=== PATIENT | female | born 1965 | race Caucasian/White ===

== ENCOUNTER → 2016-03-27 | Outpatient (CLI) | payer OTHER ==
--- NOTE | 2016-03-27 10:27 | MA ---
Diagnostic Digital Mammogram With iCAD Analysis Clinical Indications: Patient reports intermittent palpable areas in the right breast, although, curr ently she does not feel any discrete palpable abnormality. Technique: Standard cephalocaudal projections are obtained. Digital breast tomosynthesis was performe d in the MLO projection with reconstruction at 1.0 mm slice thickness and composite MLO views reconst ructed. This examination is processed by the iCAD computer aided detection system. Comparison: August 2011. Breast density: Type D: Extremely dense. Findings: CAD was reviewed. Focal nodular opacities in the upper and lower posterior breast are uncha nged and were previously demonstrated to represent lymph nodes. No spiculated masses, suspicious calc ifications or secondary signs of malignancy are seen. There has been no significant change in the diamond earance of either breast. Impression: Palpable areas previously present in the right breast require further evaluation, BI-RADS 0. Recommendation: Targeted right breast ultrasound which will be subsequently performed today. [facility] will send a result letter to the patient. Negative mammography should not preclude additional workup of a clinically suspicious finding. The patient's information is entered into a reminder system with a target due date for her next mammo gram.
--- NOTE | 2016-03-27 11:11 | US ---
Right Breast Ultrasound History: Evaluate palpable areas in the outer right breast intermittently identified by the patient o n physical examination. Technique: Longitudinal and transverse images were obtained utilizing a 15 MHz transducer. Color Dop pler evaluation is employed for assessment of vascularity. The examination is interpreted in conjunction with diagnostic mammography performed earlier today. Findings: Two small well-circumscribed nodular opacities are noted in the outer right breast one at t he 11:00 position and second at the 8:00 position. These have not changed significantly in size from the 2012 study and have an appearance compatible with small benign lymph nodes. No suspicious solid m ass is seen and no cyst is identified. Impression: Benign findings when considering mammographic and sonographic assessment, BI-RADS 2. Recommendation: Resume routine mammographic screening in one year as long as physical examination is negative. A verbal report was given to the patient. [facility] will send a result letter to the patient.
== END ==
LOC: FIMAGING 09:42
PROVIDERS: ATTEND Family Medicine
DX: N63 Unspecified lump in breast (principal)
CPT/HCPCS: G0204; G0279

== ENCOUNTER 2017-08-23 19:41 | Emergency (ER) | payer OTHER ==
[2017-08-23 20:17] LABS: PLATELET COUNT 257 10^3/uL (150-400)
--- NOTE | 2017-08-23 20:17 | EDPHY ---
H & P Stated Complaint: Hives/rash all over, benadryl x1day, poss from pencillins/milk - Personal History LMP (Females 10-55): Hysterectomy Current Tetanus Diphtheria and Acellular Pertussis (TDAP): Unsure - Medical/Surgical History Hx Asthma: No Hx Chronic Respiratory Disease: No Hx Diabetes: No Hx Cardiac Disease: No Hx Renal Disease: No Hx Cirrhosis: No Hx Alcoholism: No Hx HIV/AIDS: No Hx Splenectomy or Spleen Trauma: No Other PMH: Sensitive to penicillins, hysterectomy - Social History Smoking Status: Never smoked Time Seen by Provider: 08/23/17 19:52 HPI/ROS: CHIEF COMPLAINT: Itching rash x3 days HISTORY OF PRESENT ILLNESS: 51-year-old female generally healthy presents to the ER via private vehicle complaining 3 days of itching rash, skin described as "hot". No pain. No intraoral lesions. No nausea or vomiting. No epistaxis. No gingival bleeding. No urinary abnormality. No hematuria. No ocular complaints. No GI complaints. No medication changes. No recent URI or pharyngitis symptoms. No chest pain. No dyspnea. No abdominal pain. No melena or hematochezia. No headache. PRIMARY CARE PROVIDER: Dr. Doris Chong REVIEW OF SYSTEMS: A ten point review of systems was performed and is negative with the exception of the items mentioned in the HPI PAST MEDICAL & SURGICAL HISTORY: Partial hysterectomy. 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 No IV drug use history. PHYSICAL EXAM (Prior to examination, patient consented to physical exam, hands were washed and my usual and customary physical exam procedures followed) 1) GENERAL: Well-developed, well-nourished, alert and oriented. Appears nontoxic 2) HEAD: Normocephalic, atraumatic. No tenderness to palpation temporal region. 3) HEENT: Pupils equal, round, reactive to light bilaterally. Sclera anicteric. No injection Nasopharynx, oropharynx, clear, no lesions.No intraoral lesions . No tonsillar enlargement or exudate. No crusting. No epistaxis. Ears bilaterally with normal tympanic membranes. 4) NECK: Full range of motion, no meningeal signs. 5) LUNGS: Clear auscultation bilaterally, no wheezes, no rhonchi, no retractions. 6) HEART: Regular rate and rhythm, no murmur, no heave, no gallop. 7) ABDOMEN: No guarding, no rebound, no focal tenderness, negative McBurney's, negative Lei's, negative Rovsing's, negative peritoneal sign, 8) MUSCULOSKELETAL: Moving all extremities, no focal areas of tenderness, no obvious trauma. No peripheral edema or discoloration. 9) BACK: No CVA tenderness, no midline vertebral tenderness, no fluctuance, no step-off, no obvious trauma, no visual or palpable abnormality. 10) SKIN: Diffuse blanchable vasculitic appearing rash. No evidence of super infection or cellulitis. No vesicles. No tenderness. Spares the genitalia . No sloughing of tissue. No bullae 11) (with female neurodiagnostic technician Lisa at bedside): No rash or lesions. No sloughing of tissue DIFFERENTIAL DIAGNOSIS: In no particular include but limited to cellulitis, urticaria, vasculitis, Causey-Campos, post streptococcal glomerular nephritis (Cecille Sarabia) Constitutional: Initial Vital Signs Temperature (C) 36.6 C 08/23/17 19:42 Heart Rate 75 08/23/17 19:42 Respiratory Rate 19 08/23/17 19:42 Blood Pressure 119/88 H 08/23/17 19:42 O2 Sat (%) 98 08/23/17 19:42 O2 Delivery Mode Room Air Allergies/Adverse Reactions: cephalexin monohydrate [From Keflex] Allergy (Verified 08/23/17 19:42) Anaphylaxis Penicillins Allergy (Verified 08/23/17 19:42) Anaphylaxis Home Medications: Medication Instructions Recorded predniSONE [Prednisone] 20 mg PO DAILY #15 tablet 08/23/17 Medical Decision Making ED Course/Re-evaluation: Patient was re-evaluated with serial examinations in the case discussed with secondary supervising physician Dr. Yvonne Pineda in the ER. Large vessel vasculitis not ruled out although I think less than likely at this time. No evidence of end-organ damage at this time. We discussed multiple possible etiologies for symptoms. Doubt infectious etiology such as cellulitis. No evidence of super infection. Recommended course of prednisone and close follow up with her primary care provider. Doubt Causey-Campos. She feels comfortable being discharged. Usual and customary discharge precautions and instructions provided. (Cecille Sarabia) Other Provider: The patient was evaluated and managed by the Physician Surgical Pathologist. I discussed the patient's presentation and course with the physician loan assistant and agree with the evaluation. My co-signature indicates that I have reviewed this chart and I agree with the findings and plan of care as documented. I am the secondary supervising physician. (Yvonne Pineda) - Data Points Laboratory Results: Laboratory Results 08/23/17 20:00 08/23/17 20:00 Medications Given: Discontinued Medications Prednisone (Prednisone) 60 mg PO EDNOW ONE Stop: 08/23/17 21:35 Last Admin: 08/23/17 21:35 Dose: 60 mg Departure - Departure Disposition: Home, Routine, Self-Care Clinical Impression: Vasculitis Condition: Good Instructions: Acute Rash (ED) Additional Instructions: Return to the ER if you develop new or worsening symptoms, fevers, blistering, or any other symptoms that concern Referrals: Doris Chong MD [Primary Care Provider] - 2-3 days, call for appt. Prescriptions: predniSONE [Prednisone] 20 mg PO DAILY #15 tablet
[2017-08-23] MEDS ORDERED: predniSONE 20 MG TAB ONE (21:33)
[2017-08-23] MEDS ORDERED: predniSONE 20 MG TAB PO ONE (21:34)
[2017-08-23 21:38] VITALS: BP 113/68
== END 2017-08-23 21:38 | disposition home or self-care (01) ==
DX: I77.6 Arteritis, unspecified (principal)
CPT/HCPCS: J7512

== ENCOUNTER 2017-08-25 07:52 | Emergency (ER) | payer OTHER ==
--- NOTE | 2017-08-25 08:09 | EDPHY ---
H & P Stated Complaint: Worsening allergy symptoms since Friday Time Seen by Provider: 08/25/17 08:10 HPI/ROS: CHIEF COMPLAINT: Worsening rash HISTORY OF PRESENT ILLNESS: The patient is a 51 y/o female returning for the second time in 2 days complaining of a worsening diffuse rash that began 5 days ago. She says, "this is how I reacted when I used to take Penicillin or Keflex. 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 She cannot identify any other obvious contacts or precipitating sources for her rash. She received a script for prednisone Friday and has been using this as prescribed along with 50mg Benadryl every 6 hours to treat symptoms. Her rash seemed to improve during the day yesterday, but worsened last night. She now feels like her ears and tongue are itching and her "throat's getting raspy." She denies dyspnea, dysphagia, fever, vomiting, abdominal pain, diarrhea. She is normally healthy. REVIEW OF SYSTEMS: A ten point review of systems was performed and is negative with the exception of the items mentioned in the HPI. 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 Lives in [place]. She is . Prior medical records reviewed including ED visit 08/23/17 for rash. General Appearance: Alert. Vital signs reviewed. Blood pressure 118/81. Eyes: Pupils equal and round, no conjunctival injection, no discharge. Anicteric. ENT, Mouth: Mucous membranes are moist, no oropharyngeal erythema or edema. Speaking normally, swallowing easily. Neck: No lymphadenopathy, supple. Trachea midline. Respiratory: Lungs are clear to auscultation; no wheezes, rales, or rhonchi. Cardiovascular: Regular rate and rhythm; no murmur, rub, or gallop. Gastrointestinal: Abdomen is soft and nontender, no masses or organomegaly. Skin: Warm and dry, diffuse erythematous urticarial rash with excoriations, normal color. Back: Nontender to palpation over the thoracolumbar spine. Extremities: No lower extremity edema, no calf tenderness or swelling. Neurological: Alert and oriented. Moving all four extremities easily and equally. Psychiatric: Normal affect. - Personal History LMP (Females 10-55): Hysterectomy Current Tetanus Diphtheria and Acellular Pertussis (TDAP): No - Medical/Surgical History Hx Asthma: No Hx Chronic Respiratory Disease: No Hx Diabetes: No Hx Cardiac Disease: No Hx Renal Disease: No Hx Cirrhosis: No Hx Alcoholism: No Hx HIV/AIDS: No Hx Splenectomy or Spleen Trauma: No Other PMH: Sensitive to penicillins, hysterectomy - Social History Smoking Status: Never smoked Constitutional: Initial Vital Signs Temperature (C) 36.8 C 08/25/17 07:53 Heart Rate 71 08/25/17 07:53 Respiratory Rate 16 08/25/17 07:53 Blood Pressure 118/81 H 08/25/17 07:53 O2 Sat (%) 100 08/25/17 07:53 O2 Delivery Mode Room Air Allergies/Adverse Reactions: cephalexin monohydrate [From Keflex] Allergy (Verified 08/23/17 19:42) Anaphylaxis Penicillins Allergy (Verified 08/23/17 19:42) Anaphylaxis Home Medications: Medication Instructions Recorded predniSONE [Prednisone] 20 mg PO DAILY #15 tablet 08/23/17 Medical Decision Making ED Course/Re-evaluation: This is a 51 y/o female who presents with a 5-day history of worsening diffuse pruritic and erythematous rash that improved only briefly yesterday after starting prednisone and worsened again last night. She reports her symptoms are consistent with prior antibiotic reaction, but she has not used antibiotics recently. 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 She has diffuse urticaria, both otherwise normal exam. No wheezes, stridor, angioedema. Plan for standard allergic rash treatment including 25mg IV Benadryl, 50mg IV Ranitidine, and 60mg PO Prednisone. Patient is feeling nauseated after PO prednisone. 4mg IV Zofran ordered. Reassessed patient. There is no evidence of respiratory compromise. She is feeling improved and ready to be discharged home. I've recommended continuing her Prednisone and Benadryl dosing and add Sarna lotion and Tagamet as desired for symptom management. She's been referred to [facility] for follow up. Return precautions discussed. Differential Diagnosis: I considered a differential diagnosis that includes but is not limited to anaphylaxis, urticaria, allergic reaction, drug reaction, dermatitis. - Data Points Medications Given: Discontinued Medications Diphenhydramine HCl (Benadryl Injection) 25 mg IVP EDNOW ONE Stop: 08/25/17 08:30 Last Admin: 08/25/17 08:36 Dose: 25 mg Ondansetron HCl (Zofran) 4 mg IVP EDNOW ONE Stop: 08/25/17 09:55 Last Admin: 08/25/17 09:54 Dose: 4 mg Prednisone (Prednisone) 60 mg PO EDNOW ONE Stop: 08/25/17 08:30 Last Admin: 08/25/17 08:34 Dose: 60 mg Ranitidine HCl (Zantac) 50 mg IVP EDNOW ONE Stop: 08/25/17 08:30 Last Admin: 08/25/17 08:37 Dose: 50 mg Departure - Departure Disposition: Home, Routine, Self-Care Clinical Impression: Urticaria Allergic reaction Qualifiers: Encounter type: subsequent encounter Qualified Code(s): T78.40XD - Allergy, unspecified, subsequent encounter Condition: Good Instructions: Urticaria (ED), General Allergic Reaction (ED) Additional Instructions: Follow up with [facility] in the next week. Continue taking Prednisone as prescribed. Continue using 50mg Benadryl every 6 hours as needed for symptoms. You can try Sarna topical lotion for itching. Use as directed on the packaging. Try Tagamet (Cimetidine) as directed on the packaging for symptoms. Return to the ED for difficulty breathing or swallowing, facial swelling, fever , or other worsening of condition. Referrals: Enma Cisneros MD [Medical Doctor] - As per Instructions Report Scribed for: Chika Pabon Report Scribed by: Livier Che Date of Report: 08/25/17 Time of Report: 08:31 Physician Review and Approval Statement: 08/25/17 08:09 Portions of this note were transcribed by the medical underwriter. I, Dr. Chika Pabon, personally performed the history, physical exam, and medical decision- making; and confirmed the accuracy of the information in the transcribed note.
[2017-08-25] MEDS ORDERED: predniSONE 20 MG TAB PO ONE (08:29)
[2017-08-25] MEDS ORDERED: RANITIDINE 50 MG/2 ML VIAL IVP ONE (08:29)
[2017-08-25] MEDS ORDERED: ONDANSETRON 4 MG/2 ML VIAL ONE (09:33)
[2017-08-25] MEDS ORDERED: ONDANSETRON 4 MG/2 ML VIAL IVP ONE (09:54)
[2017-08-25 11:05] VITALS: BP 111/65
== END 2017-08-25 11:05 | disposition home or self-care (01) ==
DX: L50.0 Allergic urticaria (principal)
CPT/HCPCS: 96374; J1200; J2405; J2780; J7512